=== PATIENT | male | born 1965 | race Hispanic/Latino ===

== ENCOUNTER 2024-05-26 15:52 | Emergency (ER) | payer BC ==
[~2024-05-26 15:52] MED LIST: Iopamidol 370 76% 100 ML VIAL ONE
[2024-05-26] MEDS ORDERED: Acetaminophen 500 MG TAB ONE (17:16)
[2024-05-26 17:24] LABS: #Basophils 0.1 thou/uL (0.0-0.2); #Eosinophils 0.3 thou/uL (0.0-0.7); #Lymphocytes 2.3 thou/uL (1.20-3.40); #Neutrophils 7.9 thou/uL (1.40-6.50); %Eosinophils 2.6 % (0.0-10.0); %Lymphocytes 19.8 % (21.0-51.0); %Monocytes 8.8 % (0.0-10.0); %Neutrophils 67.7 % (42.0-75.0); Hematocrit 40.8 % (42.0-52.0); Hemoglobin 14.2 g/dL (14.0-18.0); Mean Corpuscular HGB CONC 34.7 g/dL (32.0-36.0); Mean Corpuscular Hemoglobin 30.1 pg (27.0-31.0); Mean Corpuscular Volume 86.8 fl (78.0-98.0); Mean Platelet Volume 7.3 fL (7.4-10.4); Platelet Count 232 10x3/uL (130-400); RBC Distribution Width 10.9 % (11.5-14.5); White Blood Cell (WBC) Count 11.6 10x3/uL (4.8-10.8)
[2024-05-26 17:29] LABS: Anion Gap 13 mmol/L (10-20); BUN (Urea Nitrogen) 10 mg/dL (8.4-25.7); Calc. Creatinine Clearance 0 mL/min (70-130); Calcium 9.2 mg/dL (7.8-10.44); Carbon Dioxide 23 mmol/L (22-29); Chloride 105 mmol/L (98-107); Estimated GFR 107; Glucose 88 mg/dL (70-105); Potassium 3.9 mmol/L (3.5-5.1); Sodium 137 mmol/L (136-145)
[2024-05-26] MEDS ORDERED: Ketorolac Tromethamine 30 MG (1 mL) VIAL ONE (18:58)
[2024-05-26] MEDS ORDERED: Clindamycin/D5W 900 mg/50 ml Premix Bag ONE (18:58)
[2024-05-26] MEDS ORDERED: Dexamethasone 10 MG/ML VIAL ONE (20:00)
== END 2024-05-26 20:00 | disposition short-term general hospital (02) ==
LOC: NAV ERS 15:52
DX: K12.2 Cellulitis and abscess of mouth (principal); F17.210 Nicotine dependence, cigarettes, uncomplicated
CPT/HCPCS: 70491; 80048; 85025; 96365; 96375; J1100; J1885; J3490; Q9967